=== PATIENT | female | born 1975 | race Caucasian/White ===

== ENCOUNTER 2016-12-08 09:07 | Emergency (ER) | payer OTHER | END 2016-12-08 10:52 | disposition home or self-care (01) | DX: J01.01 Acute recurrent maxillary sinusitis (principal); E10.65 Type 1 diabetes mellitus with hyperglycemia; Z79.4 Long term (current) use of insulin; Z96.41 Presence of insulin pump (external) (internal); F17.200 Nicotine dependence, unspecified, uncomplicated ==

== ENCOUNTER 2018-08-25 11:02 | Outpatient (CLI) | payer OTHER ==
--- NOTE | 2018-08-25 14:57 | XRAY Report ---
Reason: PATTI MID FOOT LESION,CHRONIC Procedure Date: 08/25/2018 Accession Number: [id number] / [id number] Procedure: XR - Foot 3 View LT CPT Code: FULL RESULT: EXAM: LEFT FOOT RADIOGRAPHY EXAM DATE: 08/25/2018 11:50 AM. CLINICAL HISTORY: PATTI MID FOOT LESION,CHRONIC. COMPARISON: None. TECHNIQUE: 3 views. FINDINGS: Bones: Os naviculare No fractures or bone lesions. Joints: Normal. No subluxations. Soft Tissues: Normal. No soft tissue swelling. IMPRESSION: Os naviculare RADIA
== END 2018-08-25 11:03 | disposition home or self-care (01) ==
LOC: DI 11:02
PROVIDERS: ATTEND Family Medicine
DX: M79.672 Pain in left foot (principal); M25.872 Other specified joint disorders, left ankle and foot

== ENCOUNTER 2019-01-19 16:59 | Emergency (ER) | payer OTHER ==
[2019-01-19 17:37] VITALS: BP 150/85
[2019-01-19] MEDS: CLINDAMYCIN 150 MG CAPSULE PO STA (17:48)
[2019-01-19] MEDS: BUPIVACAINE 0.5%-EPI 1:200000 PF 30 ML VIAL SUBQ ONE (18:12)
--- NOTE | 2019-01-19 18:16 | ED Physician Documentation ---
PD HPI HEENT - Stated complaint Stated Complaint: FACIAL PAIN,ELEV BLOOD GLUCOSE - Chief complaint Chief Complaint: Heent - History obtained from History obtained from: Patient - History of Present Illness Timing - onset: How many days ago (2) Timing - duration: Days Timing - details: Gradual onset, Constant Severity Comments: moderate Location: Tooth (right lower tooth pain, swelling) Improves: Nothing Worsens: Other (chewing on that side). No: Swalllowing, Noise Associated symptoms: Facial swelling. No: Fever, Congestion, Rhinorrhea, Headache, Cough Similar symptoms before: Has not had sx before, Other (also hx of sinusitis and feels like she also has a sinus infection) Recently seen: Not recently seen Review of Systems Ten Systems: 10 systems reviewed and negative Constitutional: denies: Fever, Chills Eyes: reports: Reviewed and negative Ears: reports: Reviewed and negative Nose: reports: Congestion, Sinus pressure / pain Throat: reports: Dental pain / toothache. 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 - Present Medications Home Medications: Ambulatory Orders Medication Instructions Recorded Confirmed Insulin Aspart [Novolog] 05/20/15 05/20/15 Subcutaneous Insulin Pump [Insulin 05/20/15 05/20/15 Pump] hydroCHLOROthiazide 50 mg PO DAILY 05/20/15 05/20/15 [Hydrochlorothiazide] Amoxicillin 500 mg PO TID #21 tablet 04/20/16 Cephalexin [Keflex] 500 mg PO TID #20 capsule 05/11/16 Fluconazole [Diflucan] 150 mg PO ONCE #1 tablet 05/11/16 Phenazopyridine [Pyridium] 200 mg PO TID #20 tablet 05/11/16 Amox/Clav 875/125 [Augmentin 1 tab PO BID #14 tablet 12/08/16 875/125] Clindamycin HCl [Clindamycin 300MG 300 mg PO Q6HR 7 Days #30 capsule 01/19/19 CAP] - Allergies Allergies/Adverse Reactions: Allergies Allergy/AdvReac Type Severity Reaction Status Date / Time cyclobenzaprine HCl * Allergy Hives Verified 01/19/19 17:04 [From Flexeril] - Social History Does the pt smoke?: Yes Smoking Status: Current every day smoker Does the pt drink ETOH?: Yes Does the pt have substance abuse?: No - Immunizations Immunizations are current?: Yes PD ED PE NORMAL - Vitals Vital signs reviewed: Yes - General General: Alert and oriented X 3, No acute distress, Well developed/nourished - HEENT HEENT: Atraumatic - Neck Neck: Supple, no meningeal sign, No JVD - Cardiac Cardiac: RRR - Respiratory Respiratory: No respiratory distress - Abdomen Abdomen: Non distended - Female Female : Deferred - Rectal Rectal: Deferred - Derm Derm: Normal color, Warm and dry, No rash - Neuro Neuro: Alert and oriented X 3 Eye Opening: Spontaneous Motor: Obeys Commands Verbal: Oriented GCS Score: 15 - Psych Psych: Normal mood, Normal affect PD ED PE EXPANDED - HEENT HEENT: Right frontal sinus TTP, Other (Right lower molar dental abscess, no facial swelling) HEENT Visual: 1 - abscess Results - Vitals Vitals: Vital Signs - 24 hr 01/19/19 17:02 Temperature 36.7 C Heart Rate 96 Respiratory 18 Rate Blood Pressure 150/85 H O2 Saturation 100 Oxygen O2 Source Room air - Labs Labs: Laboratory Tests 01/19/19 17:20 POC Whole Bld Glucose 67 L Procedures - Abscess I&D (location) right Preparation: Marcaine 0.5%, With epi (3cc) Incision: Incised with scalpel, Purulent drainage, Loculations broken Other: Pt tolerated well, Dressing applied, Antibiotic prescribed PD MEDICAL DECISION MAKING - ED course Complexity details: reviewed results, re-evaluated patient, considered differential, d/w patient ED course: ddx- dental abscess, pericoronitis, dental caries. 43 y/o F with R lower molar dental abscess that was I&D'd here without complication. Given clindamycin and pt is stable for discharge. Departure - Departure Disposition: 01 Home, Self Care Clinical Impression: Dental abscess Condition: Stable Record reviewed to determine appropriate education?: Yes Instructions: ED Abscess Dental Follow-Up: your,dentist [Other] Prescriptions: Clindamycin HCl [Clindamycin 300MG CAP] 300 mg PO Q6HR 7 Days #30 capsule
== END 2019-01-19 18:34 | disposition home or self-care (01) ==
LOC: ED 16:59
DX: K04.7 Periapical abscess without sinus (principal); R51 Headache; E10.9 Type 1 diabetes mellitus without complications; F17.200 Nicotine dependence, unspecified, uncomplicated; Z96.41 Presence of insulin pump (external) (internal); Z87.09 Personal history of other diseases of the respiratory system
CPT/HCPCS: 10060; 40800; 41800; 99283

== ENCOUNTER 2019-03-27 16:07 | Emergency (ER) | payer OTHER ==
[2019-03-27 16:38] LABS: BASOPHILS # (AUTO) 0.1 10^3/uL (0.0-0.1); BASOPHILS % (AUTO) 0.8 %; EOSINOPHILS # (AUTO) 0.2 10^3/uL (0.0-0.7); HGB - HEMOGLOBIN 8.1 g/dL (12.0-16.0); LYMPHOCYTES # (AUTO) 1.8 10^3/uL (1.5-3.5); LYMPHOCYTES % (AUTO) 19.3 %; MEAN CORPUSCULAR HEMOGLOBIN 21.7 pg (27.0-31.0); MEAN CORPUSCULAR HGB CONC 28.8 g/dL (32.0-36.0); MEAN CORPUSCULAR VOLUME 75.3 fL (81.0-99.0); MEAN PLATELET VOLUME 8.5 fL (7.9-10.8); MONOCYTES # (AUTO) 0.5 10^3/uL (0.0-1.0); MONOCYTES % (AUTO) 5.4 %; NEUTROPHILS # (AUTO) 6.6 10^3/uL (1.5-6.6); PLT - PLATELET COUNT 328 10^3/uL (130-450); RED BLOOD COUNT 3.73 10^6/uL (4.20-5.40); RED CELL DISTRIBUTION WIDTH 17.9 % (12.0-15.0); WHITE BLOOD COUNT 9.1 x10^3/uL (4.8-10.8)
[2019-03-27 16:54] LABS: ALBUMIN/GLOBULIN RATIO 1.1 (1.0-2.2); BILIRUBIN,TOTAL 0.4 mg/dL (0.2-1.0); CALCIUM 9.3 mg/dL (8.5-10.3); CREATININE 0.8 mg/dL (0.4-1.0); TOTAL PROTEIN 7.8 g/dL (6.7-8.2)
[2019-03-27 17:36] LABS: PLATELET ESTIMATE, MANUAL NORMAL (130-450,000) (NORMAL); PLATELET MORPHOLOGY NORMAL APPEARANCE (NORMAL)
[2019-03-27 18:17] LABS: BILIRUBIN,URINE NEGATIVE (NEGATIVE); GLUCOSE, URINE (UA) NEGATIVE (NEGATIVE); KETONES,URINE (UA) NEGATIVE (NEGATIVE); LEUKOCYTE ESTERASE, URINE MODERATE (NEGATIVE); NITRITE,URINE POSITIVE (NEGATIVE); OCCULT BLOOD,URINE TRACE-INTA (NEGATIVE); PROTEIN,URINE 30 mg/dL (NEGATIVE); UROBILINOGEN,URINE 0.2 (NORMAL) E.U./dL (NORMAL)
[2019-03-27 18:19] LABS: CLARITY,URINE CLOUDY (CLEAR)
[2019-03-27 18:20] LABS: HCG UR QUAL NEGATIVE
[2019-03-27] MEDS ORDERED: cephALEXin 250 MG CAPSULE PO STA (18:21)
[2019-03-27] MEDS ORDERED: POTASSIUM CHLORIDE 20 MEQ TABLET PO STA (18:21)
--- NOTE | 2019-03-27 18:23 | ED Physician Documentation ---
History of Present Illness - Stated complaint Stated Complaint: FEM - Chief complaint Chief Complaint: Abd Pain - Additonal information Additional information: This is a 43-year-old female with a history of diabetes, and frequent urinary tract infections, presents with dysuria urgency and frequency for the last 4 days. Patient states that her returned from out of town, and when she is intimate with him she oftentimes develops UTIs. This feels her classic UTI with some mild suprapubic discomfort, burning on urination. She states she has started to have slight discomfort in her right lower flank, this is very mild. No fever, no nausea or vomiting. No hematuria. 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 - Present Medications Home Medications: Ambulatory Orders Medication Instructions Recorded Confirmed Insulin Aspart [Novolog] 05/20/15 05/20/15 RX: hydroCHLOROthiazide 50 mg PO DAILY 05/20/15 05/20/15 [Hydrochlorothiazide] Subcutaneous Insulin Pump [Insulin 05/20/15 05/20/15 Pump] RX: Amoxicillin 500 mg PO TID #21 tablet 04/20/16 Cephalexin [Keflex] 500 mg PO TID #20 capsule 05/11/16 Fluconazole [Diflucan] 150 mg PO ONCE #1 tablet 05/11/16 Phenazopyridine [Pyridium] 200 mg PO TID #20 tablet 05/11/16 Amox/Clav 875/125 [Augmentin 1 tab PO BID #14 tablet 12/08/16 875/125] Clindamycin HCl [Clindamycin 300MG 300 mg PO Q6HR 7 Days #30 capsule 01/19/19 CAP] RX: Cefdinir 300 mg PO BID #14 capsule 03/27/19 - Allergies Allergies/Adverse Reactions: Allergies Allergy/AdvReac Type Severity Reaction Status Date / Time cyclobenzaprine HCl * Allergy Hives Verified 03/27/19 16:16 [[facility] - Social History Does the pt smoke?: Yes Smoking Status: Current every day smoker Does the pt drink ETOH?: Yes Does the pt have substance abuse?: No - Immunizations Immunizations are current?: Yes PD ED PE NORMAL - Vitals Vital signs reviewed: Yes - General General: Alert and oriented X 3, No acute distress - HEENT HEENT: Atraumatic - Cardiac Cardiac: RRR - Respiratory Respiratory: Clear bilaterally - Abdomen Abdomen: Soft, Non distended, Other (Very mild suprapubic tenderness to palpation, otherwise nontender abdomen) - Derm Derm: Warm and dry - Extremities Extremities: No deformity - Neuro Neuro: Alert and oriented X 3 - Psych Psych: Normal mood, Normal affect Results - Vitals Vitals: Oxygen O2 Source Room air - Labs Labs: Microbiology 03/27/19 16:26 Urine Culture - Final Urine,Clean Catch Escherichia Coli Laboratory Tests 03/27/19 03/27/19 03/27/19 16:26 16:26 16:32 WBC 9.1 RBC 3.73 L Hgb 8.1 L Hct 28.1 L MCV 75.3 L MCH 21.7 L MCHC 28.8 L RDW 17.9 H Plt Count 328 MPV 8.5 Neut # (Auto) 6.6 Lymph # (Auto) 1.8 [place] # (Auto) 0.5 Eos # (Auto) 0.2 Baso # (Auto) 0.1 Absolute Nucleated RBC 0.00 Nucleated RBC % 0.0 Manual Slide Review Indicated Platelet Estimate NORMAL (130-450,000) Platelet Morphology NORMAL APPEARANCE RBC Morph Micro Appear 1+ HYPOCHROMASIA Sodium Potassium Chloride Carbon Dioxide Anion Gap BUN Creatinine Estimated GFR (MDRD) Glucose Calcium Total Bilirubin AST ALT Alkaline Phosphatase Total Protein Albumin Globulin Albumin/Globulin Ratio Lipase Urine Color YELLOW Urine Clarity CLOUDY Urine pH 6.0 Ur Specific [place] 1.015 1.015 Urine Protein 30 H Urine Glucose (UA) NEGATIVE Urine Ketones NEGATIVE Urine Occult Blood TRACE-INTA Urine Nitrite POSITIVE H Urine Bilirubin NEGATIVE Urine Urobilinogen 0.2 (NORMAL) Ur Leukocyte Esterase MODERATE H Urine RBC 0-5 Urine WBC >25 H Urine WBC Clumps PRESENT Ur Squamous Epith Cells FEW Squamous Urine Bacteria Moderate H Ur Microscopic Review INDICATED Urine Culture Comments INDICATED Urine HCG, Qual NEGATIVE 03/27/19 16:32 WBC RBC Hgb Hct MCV MCH MCHC RDW Plt Count MPV Neut # (Auto) Lymph # (Auto) [place] # (Auto) Eos # (Auto) Baso # (Auto) Absolute Nucleated RBC Nucleated RBC % Manual Slide Review Platelet Estimate Platelet Morphology RBC Morph Micro Appear Sodium 139 Potassium 2.9 L Chloride 100 L Carbon Dioxide 26 Anion Gap 13.0 BUN 14 Creatinine 0.8 Estimated GFR (MDRD) 78 L Glucose 110 H Calcium 9.3 Total Bilirubin 0.4 AST 20 ALT 14 Alkaline Phosphatase 57 Total Protein 7.8 Albumin 4.0 Globulin 3.8 Albumin/Globulin Ratio 1.1 Lipase 23 Urine Color Urine Clarity Urine pH Ur Specific [place] Urine Protein Urine Glucose (UA) Urine Ketones Urine Occult Blood Urine Nitrite Urine Bilirubin Urine Urobilinogen Ur Leukocyte Esterase Urine RBC Urine WBC Urine WBC Clumps Ur Squamous Epith Cells Urine Bacteria Ur Microscopic Review Urine Culture Comments Urine HCG, Qual PD MEDICAL DECISION MAKING - ED course Complexity details: considered differential (UTI, STI, pyelonephritis) ED course: Pt is well-appearing, with a benign exam. Her history and UA is consistent with a UTI. She denies risk factors for STI. She also has an anemia, which is known to her, but fairly severe at 8.1. She has no signs of bleeding and her VS are unremarkable and she is asymptomatic with the anemia. She will follow up with h er PCP on this, her hypokalemia (for which she has supplements that she will take), and her UTI symptoms. Return precautions discussed and patient was discharged. Departure - Departure Disposition: 01 Home, Self Care Clinical Impression: UTI (urinary tract infection) Qualifiers: Urinary tract infection type: acute cystitis Hematuria presence: without hematuria Qualified Code(s): N30.00 - Acute cystitis without hematuria Condition: Good Instructions: ED UTI Cystitis Female Follow-Up: Morgan Quick MD [Primary Care Provider] - Within 1 week Prescriptions: RX: Cefdinir 300 mg PO BID #14 capsule Comments: You were seen today for UTI symptoms, you do appear to have a urinary tract infection. You also have an anemia, hemoglobin is 8.1, please follow-up with your primary care provider on this. Your potassium was also low at 2.9, please take your potassium supplementation as prescribed. If you have any worsening symptoms such as severe abdominal pain, vomiting, or fever, please return to the emergency department. Discharge Date/Time: 03/27/19 18:40
[2019-03-27 18:29] VITALS: BP 108/71
[2019-03-27 18:30] LABS: BACTERIA,URINE Moderate /HPF (None Seen); RBC,URINE 0-5 /HPF (0-5); SQUAMOUS EPITHELIAL CELL,UR FEW Squamous (<= Few); WBC CLUMPS,URINE PRESENT
== END 2019-03-27 18:40 | disposition home or self-care (01) ==
LOC: ED 16:07
DX: N30.00 Acute cystitis without hematuria (principal); D64.9 Anemia, unspecified; E87.6 Hypokalemia; E10.9 Type 1 diabetes mellitus without complications; F17.200 Nicotine dependence, unspecified, uncomplicated
CPT/HCPCS: 36415; 80053; 81001; 81025; 83690; 85025; 87086; 87181; 99283; 99284; A9270; 81003

== ENCOUNTER 2019-05-05 07:38 | Emergency (ER) | payer OTHER ==
[2019-05-05] MEDS ORDERED: ONDANSETRON 4 MG/2 ML VIAL IVP STA (09:08)
[2019-05-05] MEDS ORDERED: SODIUM CHLORIDE 0.9% 1,000 ML IV ONE (09:08)
[2019-05-05 09:12] LABS: BILIRUBIN,URINE NEGATIVE (NEGATIVE); CLARITY,URINE CLEAR (CLEAR); GLUCOSE, URINE (UA) 100 mg/dL (NEGATIVE); KETONES,URINE (UA) NEGATIVE (NEGATIVE); LEUKOCYTE ESTERASE, URINE NEGATIVE (NEGATIVE); NITRITE,URINE NEGATIVE (NEGATIVE); OCCULT BLOOD,URINE NEGATIVE (NEGATIVE); PROTEIN,URINE NEGATIVE (NEGATIVE); UROBILINOGEN,URINE 0.2 (NORMAL) E.U./dL (NORMAL)
[2019-05-05 09:21] LABS: BASOPHILS # (AUTO) 0.1 10^3/uL (0.0-0.1); BASOPHILS % (AUTO) 1.5 %; EOSINOPHILS # (AUTO) 0.3 10^3/uL (0.0-0.7); EOSINOPHILS % (AUTO) 6.1 %; HGB - HEMOGLOBIN 8.4 g/dL (12.0-16.0); LYMPHOCYTES % (AUTO) 48.3 %; MEAN CORPUSCULAR HEMOGLOBIN 21.8 pg (27.0-31.0); MEAN CORPUSCULAR HGB CONC 29.1 g/dL (32.0-36.0); MEAN CORPUSCULAR VOLUME 75.1 fL (81.0-99.0); MONOCYTES # (AUTO) 0.4 10^3/uL (0.0-1.0); MONOCYTES % (AUTO) 8.5 %; NEUTROPHILS # (AUTO) 1.5 10^3/uL (1.5-6.6); NEUTROPHILS % (AUTO) 35.4 %; PLT - PLATELET COUNT 340 10^3/uL (130-450); RED BLOOD COUNT 3.85 10^6/uL (4.20-5.40); WHITE BLOOD COUNT 4.1 x10^3/uL (4.8-10.8)
[2019-05-05 09:33] LABS: ALBUMIN 4.2 g/dL (3.2-5.5); ALBUMIN/GLOBULIN RATIO 1.2 (1.0-2.2); BILIRUBIN,TOTAL 0.4 mg/dL (0.2-1.0); CALCIUM 9.4 mg/dL (8.5-10.3); CREATININE 0.8 mg/dL (0.4-1.0); TOTAL PROTEIN 7.7 g/dL (6.7-8.2)
[2019-05-05 10:03] LABS: HCG UR QUAL NEGATIVE
[2019-05-05] MEDS ORDERED: POTASSIUM CHLORIDE 20 MEQ TABLET PO STA (10:06)
--- NOTE | 2019-05-05 10:46 | ED Physician Documentation ---
History of Present Illness - Stated complaint Stated Complaint: NAUSEA/DIZZY - Chief complaint Chief Complaint: Heent - History obtained from History obtained from: Patient - History of Present Illness Timing: Yesterday - Additonal information Additional information: The patient is a 43-year-old insulin-dependent diabetic female who presents with nausea and dizziness that started yesterday, with symptoms persisting this morning. She denies fever, vomiting, cough or chest pain. She reports mild bifrontal headache, which she describes as "annoying." 6 days ago she flew to [place] from [place]. Her past medical history is significant for anemia, which she has had since childhood. She denies any recent change in the color of her stools, and denies heavy menstrual bleeding. Her last menstrual period was one week ago.. Review of Systems Constitutional: reports: Other (Vague dizziness.). denies: Fever, Fatigue Eyes: denies: Decreased vision Ears: denies: Tinnitus/ringing Nose: denies: Congestion Throat: denies: Sore throat Cardiac: denies: Chest pain / pressure Respiratory: denies: Dyspnea, Cough GI: reports: Nausea. denies: Abdominal Pain, Vomiting, Diarrhea : reports: LMP (1 week ago.). denies: Dysuria Skin: denies: Rash Musculoskeletal: denies: Back pain, Extremity pain, Extremity swelling Neurologic: reports: Headache (Mild frontal headache.). 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 - Present Medications Home Medications: Ambulatory Orders Medication Instructions Recorded Confirmed Subcutaneous Insulin Pump [Insulin 05/20/15 05/20/15 Pump] Ondansetron Odt [Zofran] 4 mg TL Q6H PRN #10 tablet 05/05/19 - Allergies Allergies/Adverse Reactions: Allergies Allergy/AdvReac Type Severity Reaction Status Date / Time cyclobenzaprine HCl * Allergy Hives Verified 05/05/19 08:03 [From Flexeril] - Social History Does the pt smoke?: Yes Smoking Status: Former smoker Does the pt drink ETOH?: Yes Does the pt have substance abuse?: No - Immunizations Immunizations are current?: Yes PD ED PE NORMAL - Vitals Vital signs reviewed: Yes (normal) - General General: Alert and oriented X 3, Well developed/nourished - HEENT HEENT: Atraumatic, PERRL, EOMI, Ears normal, Moist mucous membranes, Pharynx benign - Neck Neck: Supple, no meningeal sign, No adenopathy, No JVD - Cardiac Cardiac: RRR - Respiratory Respiratory: No respiratory distress, Clear bilaterally - Abdomen Abdomen: Soft, Non tender - Back Back: No CVA TTP - Derm Derm: No rash - Extremities Extremities: No edema, No calf tenderness / cord - Neuro Neuro: Alert and oriented X 3, No motor deficit, No sensory deficit, Normal speech Results - Vitals Vitals: Oxygen O2 Source Room air - Labs Labs: Laboratory Tests 05/05/19 05/05/19 05/05/19 09:00 09:05 09:15 WBC 4.1 L RBC 3.85 L Hgb 8.4 L Hct 28.9 L MCV 75.1 L MCH 21.8 L MCHC 29.1 L RDW 18.0 H Plt Count 340 MPV 8.0 Neut # (Auto) 1.5 Lymph # (Auto) 2.0 [place] # (Auto) 0.4 Eos # (Auto) 0.3 Baso # (Auto) 0.1 Absolute Nucleated RBC 0.00 Nucleated RBC % 0.0 Sodium Potassium Chloride Carbon Dioxide Anion Gap BUN Creatinine Estimated GFR (MDRD) Glucose Calcium Total Bilirubin AST ALT Alkaline Phosphatase Total Protein Albumin Globulin Albumin/Globulin Ratio Lipase Urine Color YELLOW Urine Clarity CLEAR Urine pH 8.0 H Ur Specific [place] 1.015 1.015 Urine Protein NEGATIVE Urine Glucose (UA) 100 H Urine Ketones NEGATIVE Urine Occult Blood NEGATIVE Urine Nitrite NEGATIVE Urine Bilirubin NEGATIVE Urine Urobilinogen 0.2 (NORMAL) Ur Leukocyte Esterase NEGATIVE Ur Microscopic Review NOT INDICATED Urine Culture Comments NOT INDICATED Urine HCG, Qual NEGATIVE 05/05/19 09:15 WBC RBC Hgb Hct MCV MCH MCHC RDW Plt Count MPV Neut # (Auto) Lymph # (Auto) [place] # (Auto) Eos # (Auto) Baso # (Auto) Absolute Nucleated RBC Nucleated RBC % Sodium 139 Potassium 3.0 L Chloride 99 L Carbon Dioxide 33 H Anion Gap 7.0 BUN 15 Creatinine 0.8 Estimated GFR (MDRD) 78 L Glucose 98 Calcium 9.4 Total Bilirubin 0.4 AST 21 ALT 14 Alkaline Phosphatase 51 Total Protein 7.7 Albumin 4.2 Globulin 3.5 Albumin/Globulin Ratio 1.2 Lipase 23 Urine Color Urine Clarity Urine pH Ur Specific [place] Urine Protein Urine Glucose (UA) Urine Ketones Urine Occult Blood Urine Nitrite Urine Bilirubin Urine Urobilinogen Ur Leukocyte Esterase Ur Microscopic Review Urine Culture Comments Urine HCG, Qual PD MEDICAL DECISION MAKING - ED course Complexity details: reviewed results, re-evaluated patient, considered differential, d/w patient ED course: The patient's presentation is significant for anemia and hypokalemia. It is unclear whether either of these has been the cause of her feeling of dizziness or nausea. She has a history of chronic anemia, so it is unlikely to be the cause of her dizziness. There is no evidence of focal neurologic deficit. There is no clinical evidence of infectious etiology and I doubt pulmonary embolus. Her CBC reveals microcytic anemia with a hemoglobin of 8.4 and hematocrit of 28.9. Chemistry panel reveals hypokalemia with potassium of 3.0. Her blood sugar is normal at 98. Urinalysis is negative. Treatment in the emergency department included administration of normal saline 1 L IV, ondansetron 4 mg IV, and potassium 20 mEq orally and 10 mEq IV. She is being discharged with prescriptions for potassium and for Zofran. I discussed with her the results of her workup, symptomatic treatment, outpatient follow-up, as well as potentially worrisome signs or symptoms that should prompt reevaluation in the emergency department. Departure - Departure Disposition: 01 Home, Self Care Clinical Impression: Dizziness, Hypokalemia Anemia Qualifiers: Anemia type: unspecified type Qualified Code(s): D64.9 - Anemia, unspecified Condition: Stable Instructions: ED Dizziness UKO, ED Potassium Deficiency Follow-Up: Morgan Quick MD [Primary Care Provider] - Prescriptions: Ondansetron Odt [Zofran] 4 mg TL Q6H PRN #10 tablet PRN Reason: Nausea / Vomiting Comments: Take supplemental potassium as previously prescribed. You can use Phenergan as prescribed if needed for nausea. Follow-up with your primary physician within 2 weeks. Call to schedule appointment. Discuss with him potential causes for anemia. Return to the emergency department if increasing dizziness or lightheadedness, persistent vomiting, or otherwise worsening symptoms. Discharge Date/Time: 05/05/19 11:01
[2019-05-05 10:58] VITALS: BP 122/71
== END 2019-05-05 11:01 | disposition home or self-care (01) ==
LOC: ED 07:38
DX: E87.6 Hypokalemia (principal); D64.9 Anemia, unspecified; R42 Dizziness and giddiness; E10.9 Type 1 diabetes mellitus without complications; Z87.891 Personal history of nicotine dependence
CPT/HCPCS: 36415; 80053; 81003; 81025; 83690; 85025; 96360; 99283; 99284; A9270; 81001; 87086

== ENCOUNTER 2019-12-26 06:48 | Emergency (ER) | payer OTHER ==
--- NOTE | 2019-12-26 07:09 | ED Physician Documentation ---
PD HPI CHEST PAIN - Stated complaint Stated Complaint: CHEST PX/SOA - Chief complaint Chief Complaint: Cardiac - History obtained from History obtained from: Patient - History of Present Illness Timing - onset: How many weeks ago (has had this intermittently for couple of weeks, not associated with activity. Typically lasts for minutes or so. Onset this morning upon awakening but has persisted for couple of hours. Pain left upper chest, to shoulder and scapular back.) Timing - onset during: Sleep Timing - details: Abrupt onset, Still present, Waxing and waning Quality: Aching. No: Pressure, Tightness Location: Left chest Radiation: Back (scapular area) Improved by: No: Rest Worsened by: No: Exertion, Inspiration, Eating Associated symptoms: Nausea, Feeling faint / dizzy. No: Shortness of air, General Weakness, Cough Similar symptoms before: No diagnosis Review of Systems Constitutional: denies: Fever, Chills Nose: denies: Rhinorrhea / runny nose, Congestion Throat: denies: Sore throat Cardiac: reports: Chest pain / pressure. denies: Palpitations, Pedal edema, Calf pain Respiratory: reports: Dyspnea. 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 - Present Medications Home Medications: Ambulatory Orders Medication Instructions Recorded Confirmed Insulin Aspart Prot/Insuln Asp 24 - 50 ml INJ DAILY 09/11/19 12/26/19 [Novolog Mix 70-30 Vial] hydroCHLOROthiazide 50 mg PO DAILY 09/11/19 12/26/19 [Hydrochlorothiazide] Hydrocodone/Acetaminophen [[place] 1 each PO Q6H PRN #15 tablet 12/26/19 5-325 Tablet] Naproxen 500 mg PO BID #20 tablet 12/26/19 - Allergies Allergies/Adverse Reactions: Allergies Allergy/AdvReac Type Severity Reaction Status Date / Time cyclobenzaprine HCl * Allergy Hives Verified 12/26/19 07:03 [From Flexeril] shellfish derived Allergy Hives Verified 12/26/19 07:03 - Social History Does the pt smoke?: Yes Smoking Status: Former smoker Does the pt drink ETOH?: Yes Does the pt have substance abuse?: No - Immunizations Immunizations are current?: Yes PD ED PE NORMAL - Vitals Vital signs reviewed: Yes - General General: Alert and oriented X 3, No acute distress, Well developed/nourished - HEENT HEENT: Moist mucous membranes, Pharynx benign - Neck Neck: Supple, no meningeal sign, No adenopathy - Cardiac Cardiac: RRR, No murmur - Respiratory Respiratory: Clear bilaterally, Other (no chestwall tenderness) - Abdomen Abdomen: Soft, Non tender - Derm Derm: Normal color, Warm and dry, No rash - Extremities Extremities: No tenderness to palpate, No edema, No calf tenderness / cord - Neuro Neuro: Alert and oriented X 3, No motor deficit, No sensory deficit, Normal speech Results - Vitals Vitals: Vital Signs - 24 hr 12/26/19 12/26/19 12/26/19 07:00 08:33 09:54 Temperature 35.5 C L Heart Rate 92 85 91 Respiratory 18 19 16 Rate Blood Pressure 139/94 H 130/79 122/107 H O2 Saturation 100 100 98 Oxygen O2 Source Room air - EKG (time done) 07:01 Rate: Rate (enter#) (92) Rhythm: NSR [place]: Normal Intervals: Normal [place] QRS: Normal Ischemia: Normal ST segments. No: ST elevation c/w ischemia, ST depression - Labs Labs: Laboratory Tests 12/26/19 12/26/19 12/26/19 07:20 07:20 07:20 WBC 4.7 L RBC 3.81 L Hgb 11.5 L Hct 35.1 L MCV 92.1 MCH 30.2 MCHC 32.8 RDW 13.7 Plt Count 319 MPV 9.2 Neut # (Auto) 2.6 Lymph # (Auto) 1.3 [place] # (Auto) 0.4 Eos # (Auto) 0.3 Baso # (Auto) 0.1 Absolute Nucleated RBC 0.00 Nucleated RBC % 0.0 ESR Sodium 137 Potassium 3.5 Chloride 97 L Carbon Dioxide 28 Anion Gap 12.0 BUN 10 Creatinine 0.8 Estimated GFR (MDRD) 78 L Glucose 189 H Calcium 9.0 Magnesium Total Bilirubin 0.8 AST 21 ALT 14 Alkaline Phosphatase 51 Troponin I High Sens < 2.3 L B-Natriuretic Peptide Total Protein 7.5 Albumin 4.2 Globulin 3.3 Albumin/Globulin Ratio 1.3 Lipase 24 12/26/19 12/26/19 12/26/19 07:20 07:20 07:20 WBC RBC Hgb Hct MCV MCH MCHC RDW Plt Count MPV Neut # (Auto) Lymph # (Auto) [place] # (Auto) Eos # (Auto) Baso # (Auto) Absolute Nucleated RBC Nucleated RBC % ESR 13 Sodium Potassium Chloride Carbon Dioxide Anion Gap BUN Creatinine Estimated GFR (MDRD) Glucose Calcium Magnesium 1.9 Total Bilirubin AST ALT Alkaline Phosphatase Troponin I High Sens B-Natriuretic Peptide 13 Total Protein Albumin Globulin Albumin/Globulin Ratio Lipase - Rads (name of study) chest xray Radiology: Prelim report reviewed (no acute process), See rad report PD MEDICAL DECISION MAKING - ED course Complexity details: reviewed results, considered differential, d/w patient Departure - Departure Disposition: 01 Home, Self Care Clinical Impression: Left-sided chest pain, Swelling of upper lip Condition: Stable Record reviewed to determine appropriate education?: Yes Instructions: ED Chest Pain Pleurisy Follow-Up: Morgan Quick MD [Primary Care Provider] - Prescriptions: Hydrocodone/Acetaminophen [[place] 5-325 Tablet] 1 each PO Q6H PRN #15 tablet PRN Reason: Pain Naproxen 500 mg PO BID #20 tablet Comments: No signs of more serious problems such as heart attack, heart failure, collapsed lung, pneumonia, fluid around the lung. This is based on your blood tests, chest x-ray and EKG. Things that want show in these tests would be inflammatory processes such as musculoskeletal pain or pleurisy. We will treat for those with naproxen twice daily for the next several days to week. To that add Tylenol or hydrocodone if needed for worse pain. Recheck if not improved well over the next several days and resolved within a week and return if worsening pain or other symptoms. Discharge Date/Time: 12/26/19 09:55
[2019-12-26] MEDS ORDERED: MORPHINE 2 MG/ML CARPUJECT IVP STA (07:34)
[2019-12-26] MEDS ORDERED: KETOROLAC 30 MG/ML VIAL IVP STA (07:34)
[2019-12-26 07:47] LABS: ALBUMIN 4.2 g/dL (3.2-5.5); ALBUMIN/GLOBULIN RATIO 1.3 (1.0-2.2); BILIRUBIN,TOTAL 0.8 mg/dL (0.2-1.0); CREATININE 0.8 mg/dL (0.4-1.0); TOTAL PROTEIN 7.5 g/dL (6.7-8.2)
[2019-12-26 07:59] LABS: BASOPHILS # (AUTO) 0.1 10^3/uL (0.0-0.1); BASOPHILS % (AUTO) 1.1 %; EOSINOPHILS # (AUTO) 0.3 10^3/uL (0.0-0.7); HGB - HEMOGLOBIN 11.5 g/dL (12.0-16.0); LYMPHOCYTES # (AUTO) 1.3 10^3/uL (1.5-3.5); LYMPHOCYTES % (AUTO) 27.7 %; MEAN CORPUSCULAR HEMOGLOBIN 30.2 pg (27.0-31.0); MEAN CORPUSCULAR HGB CONC 32.8 g/dL (32.0-36.0); MEAN CORPUSCULAR VOLUME 92.1 fL (81.0-99.0); MEAN PLATELET VOLUME 9.2 fL (7.9-10.8); MONOCYTES # (AUTO) 0.4 10^3/uL (0.0-1.0); MONOCYTES % (AUTO) 8.2 %; NEUTROPHILS # (AUTO) 2.6 10^3/uL (1.5-6.6); NEUTROPHILS % (AUTO) 55.6 %; PLT - PLATELET COUNT 319 10^3/uL (130-450); RED BLOOD COUNT 3.81 10^6/uL (4.20-5.40); RED CELL DISTRIBUTION WIDTH 13.7 % (12.0-15.0); WHITE BLOOD COUNT 4.7 x10^3/uL (4.8-10.8)
--- NOTE | 2019-12-26 08:22 | XRAY Report ---
Reason: Chest pain Procedure Date: 12/26/2019 Accession Number: [id number] / [id number] Procedure: XR - Chest 1 View X-Ray CPT Code: 33835 Final Report FULL RESULT: EXAM: CHEST RADIOGRAPHY EXAM DATE: 12/26/2019 07:36 AM. CLINICAL HISTORY: Chest pain. COMPARISON: None. TECHNIQUE: 1 view. FINDINGS: Lungs/Pleura: Possible hazy groundglass opacities in the left lower lobe. No effusions or pneumothorax. EKG leads overlie the chest. Mediastinum: Within exam limitations, the cardiomediastinal contour is normal. Other: None. IMPRESSION: 1. Possible hazy left lower lobe opacities could represent atelectasis or developing infiltrates. 2. No effusions or pneumothorax. RADIA
[2019-12-26 09:55] VITALS: BP 122/107
== END 2019-12-26 09:55 | disposition home or self-care (01) ==
LOC: ED 06:48
DX: R07.9 Chest pain, unspecified (principal); R22.0 Localized swelling, mass and lump, head; E10.9 Type 1 diabetes mellitus without complications; Z79.4 Long term (current) use of insulin; Z87.891 Personal history of nicotine dependence
CPT/HCPCS: 36415; 71045; 80053; 83690; 83735; 83880; 84484; 85025; 85651; 93005; 96374; 99284

== ENCOUNTER 2020-01-17 11:28 | Outpatient (CLI) | payer OTHER ==
--- NOTE | 2020-01-17 12:32 | XRAY Report ---
Reason: CHEST PAIIN,L LOW LOBE OPACITIES ON LAST XR Procedure Date: 01/17/2020 Accession Number: [id number] / [id number] Procedure: XR - Chest 2 View X-Ray CPT Code: 12530 Final Report FULL RESULT: PROCEDURE: Chest 2 View X-Ray INDICATIONS: CHEST PAIIN,L LOW LOBE OPACITIES ON LAST XR TECHNIQUE: 2 view(s) of the chest. COMPARISON: None. FINDINGS: Surgical changes and devices: None. Lungs and pleura: No pleural effusions or pneumothorax. Lungs are clear. Mediastinum: Mediastinal contours are normal. Heart size is normal. Bones and chest wall: No suspicious bony abnormalities. Soft tissues appear unremarkable. IMPRESSION: No acute disease Reviewed by: Cristobal Kenney MD on 01/17/2020 12:31 PM PDT Approved by: Cristobal Kenney MD on 01/17/2020 12:31 PM PDT Station ID: [id number]
== END 2020-01-17 11:29 | disposition home or self-care (01) ==
LOC: DI 11:28
PROVIDERS: ATTEND Physician Assistant Medical
DX: R07.9 Chest pain, unspecified (principal)
CPT/HCPCS: 71046

== ENCOUNTER 2020-02-06 07:59 | Outpatient (CLI) | payer OTHER ==
--- NOTE | 2020-02-06 12:23 | CARDIAC PROCEDURE NOTE ---
DATE OF SERVICE: 02/06/2020 Physician: Roxann Glynn MD, [facility] INDICATION: Diabetes, family history of cardiovascular disease, valve dysfunction, (E10.9, Z82.49, I38). CARDIAC RISK FACTORS: Type 1 diabetes, hypertension, strong family history of early heart disease. PROCEDURE: After signing informed consent, the patient underwent a Jg- protocol treadmill stress test with Echo imaging pre and post-exercise. RESTING HEART RATE: 95. PEAK HEART RATE: 152 (86% predicted maximum heart rate for age). RESTING BLOOD PRESSURE: 110/76. PEAK BLOOD PRESSURE: 187/73. Patient exercised for 9 minutes on a Jg-protocol treadmill stress test. Patient achieved a peak heart rate of 152 (86% PMHR), 10.5 METs, and rated her perceived exertion at 14-15/20 on the Gildardo scale. Patient had mild shortness of breath. She developed no chest pain. (During the test, she reported that she has constant chest tightness, which did not change with exercise). Oxygen saturation was 98% to 99% on room air throughout the test. RESTING EKG: Normal sinus rhythm, within normal limits. EKG AT PEAK: New vertical QRS axis, no ST-segment or T-wave abnormalities develop. SUMMARY 1. Normal resting EKG. 2. No ischemic ST-segment or T-wave changes occur with treadmill exercise by EKG criteria. 3. Echo images reported separately. 4. This patient's cardiac risk based on all the above: Low-Moderate. cc: Morgan Quick MD TD: 02/06/2020 12:09 [facility]
== END 2020-02-06 08:00 | disposition home or self-care (01) ==
LOC: DI 07:59
PROVIDERS: ATTEND Physician Assistant Medical
DX: E10.9 Type 1 diabetes mellitus without complications (principal); I38 Endocarditis, valve unspecified; Z82.49 Family history of ischemic heart disease and other diseases of the circulatory system
CPT/HCPCS: 93350

== ENCOUNTER 2020-04-06 13:08 | Emergency (ER) | payer OTHER ==
[2020-04-06 13:22] VITALS: BP 178/97
[2020-04-06] MEDS ORDERED: PROPARACAINE 0.5% OPHTH DROPS 15 ML EACHEYE STA (13:22)
--- NOTE | 2020-04-06 13:37 | ED Physician Documentation ---
PD HPI OPHTHO - Stated complaint Stated Complaint: BILAT EYE PAIN - Chief complaint Chief Complaint: Heent - History obtained from History obtained from: Patient - Additional information Additional information: *Developed redness and irritation of the left eye about a week ago. No visual deficit. Now it went into the right eye today. No drainage. Does not wear contacts. 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 - Present Medications Home Medications: Ambulatory Orders Medication Instructions Recorded Confirmed Insulin Aspart Prot/Insuln Asp 24 - 50 ml INJ DAILY 09/11/19 12/26/19 [Novolog Mix 70-30 Vial] hydroCHLOROthiazide 50 mg PO DAILY 09/11/19 12/26/19 [Hydrochlorothiazide] Hydrocodone/Acetaminophen [[place] 1 each PO Q6H PRN #15 tablet 12/26/19 5-325 Tablet] Naproxen 500 mg PO BID #20 tablet 12/26/19 Ketotifen Fumarate [Zaditor] 1 drops EACHEYE Q8H PRN #1 drops 04/06/20 - Allergies Allergies/Adverse Reactions: Allergies Allergy/AdvReac Type Severity Reaction Status Date / Time cyclobenzaprine HCl * Allergy Hives Verified 01/22/20 14:30 [From Flexeril] shellfish derived Allergy Hives Verified 01/22/20 14:30 - Social History Does the pt smoke?: Yes Smoking Status: Current every day smoker Does the pt drink ETOH?: Yes Does the pt have substance abuse?: No - Immunizations Immunizations are current?: Yes PD ED PE NORMAL - Vitals Vital signs reviewed: Yes - General General: Alert and oriented X 3, No acute distress - HEENT HEENT: Other (She has conjunctivitis of both eyes, fluorescein uptake negative. No drainage. Normal Anand-Pen on both sides.) - Neck Neck: Supple, no meningeal sign, No bony TTP - Neuro Neuro: Alert and oriented X 3, Normal speech Results - Vitals Vitals: Vital Signs - 24 hr 04/06/20 04/06/20 13:19 13:22 Temperature 36.7 C 36.7 C Heart Rate 78 78 Respiratory 14 14 Rate Blood Pressure 178/97 H 178/97 H O2 Saturation 97 97 Oxygen O2 Source Room air Departure - Departure Disposition: 01 Home, Self Care Clinical Impression: Allergic conjunctivitis Qualifiers: Laterality: bilateral Qualified Code(s): H10.13 - Acute atopic conjunctivitis, bilateral Condition: Good Record reviewed to determine appropriate education?: Yes Instructions: ED Allergic Conjunctivitis Follow-Up: Isra Jackson MD [Provider Admit Priv/Credential] - Prescriptions: Ketotifen Fumarate [Zaditor] 1 drops EACHEYE Q8H PRN #1 drops PRN Reason: itching Comments: Follow-up with the transcribing machine mechanic if not better by midweek, return for new or worsening symptoms or for vision changes.
== END 2020-04-06 13:46 | disposition home or self-care (01) ==
LOC: ED 13:08
DX: H10.13 Acute atopic conjunctivitis, bilateral (principal); E10.9 Type 1 diabetes mellitus without complications; F17.200 Nicotine dependence, unspecified, uncomplicated
CPT/HCPCS: 99282; 99283; J3490

== ENCOUNTER 2020-06-03 07:28 | Emergency (ER) | payer OTHER ==
--- NOTE | 2020-06-03 07:56 | ED Physician Documentation ---
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 She is passing fist size clots of blood in the shower and she is having some cramping especially to the right lower quadrant. She developed some nausea last night. She is followed at the [facility] [place] for iron deficiency anemia. Her most recent counts have been normal. She is preparing to have hysterectomy done.She reports that she has not recently been ill with the exception of the nausea last night which she attributes to the use of meloxicam. Review of Systems Constitutional: denies: Fever Eyes: denies: Decreased vision Ears: denies: Ear pain Nose: denies: Rhinorrhea / runny nose, Congestion Throat: denies: Sore throat Cardiac: denies: Chest pain / pressure, Palpitations Respiratory: denies: Dyspnea, Cough GI: reports: Nausea. denies: Abdominal Pain, Vomiting, Constipation, Diarrhea : reports: Vaginal bleeding, Irregular menses. 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 - Present Medications Home Medications: Ambulatory Orders Medication Instructions Recorded Confirmed Insulin Aspart Prot/Insuln Asp 24 - 50 ml INJ DAILY 09/11/19 05/14/20 [Novolog Mix 70-30 Vial] hydroCHLOROthiazide 50 mg PO DAILY 09/11/19 05/14/20 [Hydrochlorothiazide] Hydrocodone/Acetaminophen [[place] 1 each PO Q6H PRN #15 tablet 12/26/19 05/14/20 5-325 Tablet] Naproxen 500 mg PO BID #20 tablet 12/26/19 05/14/20 Ketotifen Fumarate [Zaditor] 1 drops EACHEYE Q8H PRN #1 drops 04/06/20 05/14/20 - Allergies Allergies/Adverse Reactions: Allergies Allergy/AdvReac Type Severity Reaction Status Date / Time cyclobenzaprine HCl * Allergy Hives Verified 06/03/20 07:53 [From Flexeril] shellfish derived Allergy Hives Verified 06/03/20 07:53 - Social History Does the pt smoke?: Yes Smoking Status: Current every day smoker Does the pt drink ETOH?: Yes Does the pt have substance abuse?: No - Immunizations Immunizations are current?: Yes PD ED PE NORMAL - Vitals Vital signs reviewed: Yes - General General: Alert and oriented X 3, No acute distress, Well developed/nourished - HEENT HEENT: Atraumatic, PERRL, EOMI - Neck Neck: Supple, no meningeal sign, No bony TTP - Cardiac Cardiac: RRR, No murmur - Respiratory Respiratory: No respiratory distress, Clear bilaterally - Abdomen Abdomen: Normal bowel sounds, Soft, Non distended, No organomegaly, Other (tenderness to the right lower quadrant is mild ) - Back Back: No CVA TTP, No spinal TTP - Derm Derm: Normal color, Warm and dry, No rash - Extremities Extremities: No deformity, No edema - Neuro Neuro: Alert and oriented X 3, supervisor multifocal lens 2-12 intact, No motor deficit, No sensory deficit, Normal speech Eye Opening: Spontaneous Motor: Obeys Commands Verbal: Oriented GCS Score: 15 - Psych Psych: Normal mood, Normal affect Results - Vitals Vitals: Vital Signs - 24 hr 06/03/20 06/03/20 06/03/20 07:42 08:15 09:55 Temperature 36.7 C 36.8 C Heart Rate 102 H 90 93 Respiratory 16 14 14 Rate Blood Pressure 136/91 H 129/86 H O2 Saturation 100 100 98 Oxygen O2 Source Room air - Labs Labs: Laboratory Tests 06/03/20 06/03/20 06/03/20 08:00 08:05 08:05 WBC 5.7 RBC 4.07 L Hgb 12.3 Hct 37.8 MCV 92.9 MCH 30.2 MCHC 32.5 RDW 13.1 Plt Count 288 MPV 8.7 Neut # (Auto) 3.4 Lymph # (Auto) 1.7 [place] # (Auto) 0.4 Eos # (Auto) 0.1 Baso # (Auto) 0.1 Absolute Nucleated RBC 0.00 Nucleated RBC % 0.0 PT 11.6 INR 1.0 Sodium Potassium Chloride Carbon Dioxide Anion Gap BUN Creatinine Estimated GFR (MDRD) Glucose Calcium Total Bilirubin AST ALT Alkaline Phosphatase Total Protein Albumin Globulin Albumin/Globulin Ratio Lipase Urine Color YELLOW Urine Clarity HAZY Urine pH 6.0 Ur Specific [place] 1.020 Urine Protein NEGATIVE Urine Glucose (UA) NEGATIVE Urine Ketones NEGATIVE Urine Occult Blood LARGE H Urine Nitrite NEGATIVE Urine Bilirubin NEGATIVE Urine Urobilinogen 0.2 (NORMAL) Ur Leukocyte Esterase NEGATIVE Urine RBC TNTC H Urine WBC 0-3 Ur Squamous Epith Cells RARE Squamous Urine Bacteria Rare Ur Microscopic Review INDICATED Urine Culture Comments NOT INDICATED Urine HCG, Qual NEGATIVE 06/03/20 08:05 WBC RBC Hgb Hct MCV MCH MCHC RDW Plt Count MPV Neut # (Auto) Lymph # (Auto) [place] # (Auto) Eos # (Auto) Baso # (Auto) Absolute Nucleated RBC Nucleated RBC % PT INR Sodium 135 Potassium 2.7 L Chloride 94 L Carbon Dioxide 30 Anion Gap 11.0 BUN 11 Creatinine 0.8 Estimated GFR (MDRD) 78 L Glucose 110 H Calcium 9.1 Total Bilirubin 0.9 AST 20 ALT 15 Alkaline Phosphatase 47 Total Protein 7.8 Albumin 4.3 Globulin 3.5 Albumin/Globulin Ratio 1.2 Lipase 20 L Urine Color Urine Clarity Urine pH Ur Specific [place] Urine Protein Urine Glucose (UA) Urine Ketones Urine Occult Blood Urine Nitrite Urine Bilirubin Urine Urobilinogen Ur Leukocyte Esterase Urine RBC Urine WBC Ur Squamous Epith Cells Urine Bacteria Ur Microscopic Review Urine Culture Comments Urine HCG, Qual PD MEDICAL DECISION MAKING - ED course Complexity details: reviewed results, re-evaluated patient, considered differential, d/w patient ED course: 44 y/o diabetic female with dysfunctional uterine bleeding has normal blood counts and her pain is currently controlled. She is instructed to follow up with her primary for hormonal control should she continue to saturate pads at at rate of 2 per hour for 4 or more hours. Departure - Departure Disposition: 01 Home, Self Care Clinical Impression: Dysfunctional uterine bleeding Condition: Stable Instructions: ED Bleed Irregular Vaginal Follow-Up: Morgan Quick MD [Primary Care Provider] - Comments: Today your blood counts are normal. You are bleeding excessively and the recommendation is that if you continue to have bleeding where you are saturating 2 pads per hour for more than 4 hours a call to your primary care doctor to consider hormonal manipulation to control bleeding is indicated. Discharge Date/Time: 06/03/20 09:59
[2020-06-03 08:19] LABS: BASOPHILS # (AUTO) 0.1 10^3/uL (0.0-0.1); BASOPHILS % (AUTO) 0.9 %; EOSINOPHILS # (AUTO) 0.1 10^3/uL (0.0-0.7); EOSINOPHILS % (AUTO) 2.5 %; HGB - HEMOGLOBIN 12.3 g/dL (12.0-16.0); LYMPHOCYTES # (AUTO) 1.7 10^3/uL (1.5-3.5); LYMPHOCYTES % (AUTO) 29.7 %; MEAN CORPUSCULAR HEMOGLOBIN 30.2 pg (27.0-31.0); MEAN CORPUSCULAR HGB CONC 32.5 g/dL (32.0-36.0); MEAN CORPUSCULAR VOLUME 92.9 fL (81.0-99.0); MEAN PLATELET VOLUME 8.7 fL (7.9-10.8); MONOCYTES # (AUTO) 0.4 10^3/uL (0.0-1.0); MONOCYTES % (AUTO) 6.7 %; NEUTROPHILS # (AUTO) 3.4 10^3/uL (1.5-6.6); NEUTROPHILS % (AUTO) 59.8 %; PLT - PLATELET COUNT 288 10^3/uL (130-450); RED BLOOD COUNT 4.07 10^6/uL (4.20-5.40); RED CELL DISTRIBUTION WIDTH 13.1 % (12.0-15.0); WHITE BLOOD COUNT 5.7 x10^3/uL (4.8-10.8)
[2020-06-03 08:28] LABS: BILIRUBIN,URINE NEGATIVE (NEGATIVE); GLUCOSE, URINE (UA) NEGATIVE (NEGATIVE); KETONES,URINE (UA) NEGATIVE (NEGATIVE); LEUKOCYTE ESTERASE, URINE NEGATIVE (NEGATIVE); NITRITE,URINE NEGATIVE (NEGATIVE); OCCULT BLOOD,URINE LARGE (NEGATIVE); PROTEIN,URINE NEGATIVE (NEGATIVE); UROBILINOGEN,URINE 0.2 (NORMAL) E.U./dL (NORMAL)
[2020-06-03 08:31] LABS: CLARITY,URINE HAZY (CLEAR); HCG UR QUAL NEGATIVE
[2020-06-03 08:33] LABS: ALBUMIN 4.3 g/dL (3.2-5.5); ALBUMIN/GLOBULIN RATIO 1.2 (1.0-2.2); BILIRUBIN,TOTAL 0.9 mg/dL (0.2-1.0); CALCIUM 9.1 mg/dL (8.5-10.3); CREATININE 0.8 mg/dL (0.4-1.0); TOTAL PROTEIN 7.8 g/dL (6.7-8.2)
[2020-06-03 08:40] LABS: PT - PROTHROMBIN TIME 11.6 secs (9.9-12.6)
[2020-06-03] MEDS ORDERED: POTASSIUM CHLORIDE 20 MEQ TABLET PO STA (08:43)
[2020-06-03 08:48] LABS: BACTERIA,URINE Rare /HPF (None Seen); RBC,URINE TNTC /HPF (0-5); SQUAMOUS EPITHELIAL CELL,UR RARE Squamous (<= Few)
[2020-06-03 09:55] VITALS: BP 129/86
--- NOTE | 2020-06-03 09:59 | Ultrasound Report ---
PROCEDURE: Pelvic w/Transvag+Doppler Comp INDICATIONS: pelvic pain, R TECHNIQUE: Real-time scanning was performed of the pelvic organs, with image documentation. Additional endovagi nal scanning was necessary due to incomplete visualization of the adnexal and endometrial structures by transabdominal scanning. COMPARISON: None. FINDINGS: Transabdominal scanning: Limited scanning through the kidneys shows no hydronephrosis. No pathologi c free abdominal or pelvic fluid. Endovaginal scanning: Uterus: Uterus is normal in size at 10.7 x 4.7 x 6.5 cm. The endometrium measures 5 mm in combined thickness. Submucosal fibroid measures 1.6 x 1.4 x 2.6 cm is seen in right anterior myometrium near lower uterine segment. Small nabothian cysts are noted in the endocervical canal. No endometrial mass or fluid. Ovaries: Right ovary measures 5.1 x 3.2 x 2.9 cm in size. 2.4 x 1.8 x 2.1 cm simple cyst is seen in right ovary. Less than 12 follicles are noted in right ovary. Left ovary measures 3 x 2.5 x 2.3 cm in size and is within normal limits. No solid-appearing ovarian lesion. Normal blood flow is seen in bi lateral ovaries on color Doppler images. IMPRESSION: 1. Simple right ovarian cyst and multiple subcentimeter follicles. No solid appearing ovarian lesion. No evidence of ovarian torsion. Normal-appearing left ovary. 2. Small uterine fibroid as above. No gross endometrial mass or fluid. No significant pelvic free flu id. Reviewed by: Kirby Ospina MD on 06/03/2020 9:57 AM PDT Approved by: Kirby Ospina MD on 06/03/2020 9:57 AM PDT Station ID: [id number]
== END 2020-06-03 09:59 | disposition home or self-care (01) ==
LOC: ED 07:28
DX: N93.8 Other specified abnormal uterine and vaginal bleeding (principal); N83.291 Other ovarian cyst, right side; D25.0 Submucous leiomyoma of uterus; E10.9 Type 1 diabetes mellitus without complications; F17.200 Nicotine dependence, unspecified, uncomplicated
CPT/HCPCS: 36415; 76830; 76856; 80053; 81001; 81025; 83690; 85025; 85610; 93975; 99284; A9270; 81003; 87086

== ENCOUNTER 2023-04-19 13:33 | Emergency (ER) | payer OTHER ==
--- OUTSIDE RECORDS SUMMARY | 2023-04-19 14:20 | EXTERNAL MEDICAL SUMMARY RPT | Continuity of Care Document ---
Author Name Unknown Address [address] [place] [address] Phone Organization [facility] Address [address] [place] [address] Phone Problems date description facility 2023-03-27 07:17 Stress fracture, lef t tibia, initial encounter for fracture [facility] Results/Labs test date facility value unit notes
[2023-04-19] MEDS ORDERED: predniSONE 20 MG TABLET PO STA (15:25)
[2023-04-19] MEDS ORDERED: ALBUTEROL NEB 2.5 MG/3 ML INH STA (15:25)
[2023-04-19] MEDS ORDERED: ONDANSETRON ODT 4 MG TABLET TL STA (15:26)
[2023-04-19 15:27] VITALS: O2SAT 98
--- NOTE | 2023-04-19 15:32 | ED Physician Documentation ---
History of Present Illness - Stated complaint Stated Complaint: RT LEG SWELLING/SOA - Chief complaint Chief Complaint: Allergic Rx - History obtained from History obtained from: Patient - History of Present Illness Timing: Today Pain level max: 5 Pain level now: 5 - Additonal information Additional information: Patient is a a 47-year-old female who presents to the emergency department stating that she was stung by bee yesterday on her right lower leg. She states there is still swelling there today. Today she developed a mild headache, 5 out of 10, gradual onset, holoacranial, mild nausea. She also feels mildly short of breath. No fever. No cough. No congestion. No nausea or vomiting. Review of Systems Constitutional: denies: Fever, Chills Nose: denies: Rhinorrhea / runny nose, Congestion Throat: denies: Sore throat Cardiac: denies: Chest pain / pressure, Palpitations, Calf pain Respiratory: reports: Dyspnea. 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 - Present Medications Home Medications: Ambulatory Orders Medication Instructions Recorded Confirmed Insulin Aspart Prot/Insuln Asp 24 - 50 ml INJ DAILY 09/11/19 01/11/23 [Novolog Mix 70-30 Vial] hydroCHLOROthiazide 50 mg PO DAILY 09/11/19 01/11/23 [Hydrochlorothiazide] Ondansetron Odt [Zofran] 4 mg TL Q6H PRN #10 tablet 04/19/23 predniSONE [Deltasone] 40 mg PO DAILY #6 tablet 04/19/23 - Allergies Allergies/Adverse Reactions: Allergies Allergy/AdvReac Type Severity Reaction Status Date / Time cyclobenzaprine HCl * Allergy Hives Verified 04/19/23 14:00 [From Flexeril] lobster Allergy Anaphylaxis Verified 04/19/23 14:00 - Social History Does the pt smoke?: Yes Smoking Status: Current every day smoker Does the pt drink ETOH?: Yes Does the pt have substance abuse?: No - Immunizations Immunizations are current?: Yes - POLST Patient has POLST: No PD ED PE NORMAL - Vitals Vital signs reviewed: Yes - General General: Alert and oriented X 3, No acute distress - HEENT HEENT: Moist mucous membranes - Neck Neck: Supple, no meningeal sign - Cardiac Cardiac: RRR, Strong equal pulses - Respiratory Respiratory: No respiratory distress, Other (Mildly diminished breath sounds bilaterally no wheezing) - Abdomen Abdomen: Soft, Non tender, Non distended - Derm Derm: Warm and dry - Extremities Extremities: Other (Mild swelling to the right lower extremity, lateral aspect.) - Neuro Neuro: Alert and oriented X 3 - Psych Psych: Normal mood, Normal affect Results - Vitals Vitals: Vital Signs - 24 hr 04/19/23 04/19/23 04/19/23 13:53 15:26 17:10 Temperature 36.6 C Heart Rate 76 78 92 Respiratory 16 17 18 Rate Blood Pressure 160/89 H 135/89 H 110/63 O2 Saturation 100 98 98 Oxygen O2 Source Room air - EKG (time done) 1405 EKG releavant findings:: EKG personally interpreted by author of this note. Relevant findings are: Rate: Rate (enter#) (71) Rhythm: NSR [place]: Normal Intervals: Normal [place] QRS: Normal Ischemia: Normal ST segments PD Medical Decision Making - ED course Complexity details: re-evaluated patient, considered differential, d/w patient ED course: Patient was given albuterol treatment and her dyspnea resolved. Given a dose of prednisone and swelling decreased. Given a dose of Zofran and nausea resolved. Given a dose of Toradol and droperidol. Headache resolved. Patient is feeling much better. No evidence of anaphylaxis. No fevers. Appears to be a delayed reaction to the insect sting. Will place on steroids for home. Patient counseled regarding signs and symptoms for which I believe and urgent re- evaluation would be necessary. Patient with good understanding of and agreement to plan and is comfortable going home at this time This document was made in part using voice recognition software. While efforts are made to proofread this document, sound alike and grammatical errors may occur. Departure - Departure Disposition: Home, Self Care Clinical Impression: Allergic reaction Qualifiers: Encounter type: initial encounter Qualified Code(s): T78.40XA - Allergy, unspecified, initial encounter Condition: Good Instructions: ED Bite Sting Insect Gen Allergic React Follow-Up: Morgan Quick MD [Primary Care Provider] - Within 1 week Prescriptions: predniSONE [Deltasone] 40 mg PO DAILY #6 tablet Ondansetron Odt [Zofran] 4 mg TL Q6H PRN #10 tablet PRN Reason: Nausea / Vomiting Comments: Your pressure presents [facility] in [place]. Please take the medications as prescribed. Please return if you worsen. This should continue to improve over the next 24 hours. Forms: PCP List Discharge Date/Time: 04/19/23 16:45
[2023-04-19] MEDS ORDERED: DROPERIDOL 5 MG/2 ML VIAL IM STA (16:11)
[2023-04-19] MEDS ORDERED: KETOROLAC 60 MG/2 ML VIAL IM STA (16:11)
[2023-04-19 17:18] VITALS: BP 110/63
== END 2023-04-19 16:45 | disposition home or self-care (01) ==
LOC: ED 13:33
DX: T63.441A Toxic effect of venom of bees, accidental (unintentional), initial encounter (principal); E10.9 Type 1 diabetes mellitus without complications; F17.200 Nicotine dependence, unspecified, uncomplicated; Z79.899 Other long term (current) drug therapy
CPT/HCPCS: 93005; 96372; 99283; 99284